=== PATIENT | male | born 1990 | race Caucasian/White ===

== ENCOUNTER 2017-08-20 14:58 | Outpatient (CLI) | payer OTHER ==
--- NOTE | 2017-08-22 11:16 | MRI Report ---
EXAM: LEFT KNEE MRI WITHOUT CONTRAST EXAM DATE: 08/20/2017 03:51 PM. CLINICAL HISTORY: Pain in left knee. COMPARISON: None. TECHNIQUE: Multiplanar, multisequence T1-weighted and fluid-sensitive sequences of the knee without c ontrast. Other: None. FINDINGS: Bones: No fractures or subluxations. No marrow edema. No bone lesions. Articular Cartilage: Unremarkable. Medial Meniscus: The medial meniscus is intact. Lateral Meniscus: The lateral meniscus is intact. Cruciate Ligaments: The anterior and posterior cruciate ligaments are intact. Collateral Ligaments: The medial collateral and lateral collateral ligamentous structures are intact. Tendons: The quadriceps, patellar, semimembranosus, and popliteus tendons are unremarkable. Musculature: No edema or fatty atrophy. Other: Small joint effusion. No popliteal cyst. No loose bodies. The medial and lateral retinacula a re intact. A medial patellar plica with a maximum thickness of 1 mm is present. Subcutaneous fat is u nremarkable. Mild focal edema within the central aspect of the infrapatellar fat pad. IMPRESSION: 1. No ligament or meniscal injury. 2. Small joint effusion. 3. Medial patellar plica with a maximum thickness of 1 mm. 4. Mild focal edema within the central aspect of the infrapatellar fat pad which may be inflammatory. [facility] MUSCULOSKELETAL RADIOLOGY SECTION Referring Provider Line: [phone] SITE ID: [id number]
== END 2017-08-20 14:59 | disposition home or self-care (01) ==
LOC: DI 14:58
PROVIDERS: ATTEND General Practice
DX: M25.562 Pain in left knee (principal); R60.0 Localized edema; M25.462 Effusion, left knee